=== PATIENT | male | born 1955 | race Two or more races ===

== ENCOUNTER 2019-09-28 12:37 | Emergency (ER) | payer SELFPAY ==
[~2019-09-28] VITALS: Ht 180.3 cm; Wt 85.3 kg
[2019-09-28 12:49] VITALS: BP 151/96
== END 2019-09-28 14:42 | disposition home or self-care (01) ==
LOC: ER 12:38
DX: S46.221A Laceration of muscle, fascia and tendon of other parts of biceps, right arm, initial encounter (principal); W50.0XXA Accidental hit or strike by another person, initial encounter; Y93.67 Activity, basketball; Y92.310 Basketball court as the place of occurrence of the external cause; Y99.8 Other external cause status
CPT/HCPCS: 73080-TC; 76882